=== PATIENT | female | born 1975 | race Caucasian/White ===

== ENCOUNTER → 2018-01-21 | Outpatient (CLI) | payer BC ==
--- NOTE | 2018-01-21 11:23 | MM ---
Reason for exam: screening (asymptomatic). Baseline mammogram. History: Took hormonal contraceptives for 8 months beginning at age 26. Physical Findings: Nurse did not find any significant physical abnormalities on exam. MG 3D Screening Mammo W/Cad Bilateral CC and MLO view(s) were taken. Finding: There is equal architectural distortion in the 12 o'clock upper quadrant. These results were verbally communicated with the patient and result sheet given to the patient on 01/21/18. ASSESSMENT: Probably benign, BI-RAD 3 RECOMMENDATION: Follow-up diagnostic mammogram of the left breast in 6 months.
== END | disposition home or self-care (01) ==
LOC: RADMAMWWP 10:12
PROVIDERS: ATTEND Obstetrics & Gynecology
DX: Z12.31 Encounter for screening mammogram for malignant neoplasm of breast (principal)
CPT/HCPCS: 77063; 77067

== ENCOUNTER → 2018-08-20 | Outpatient (CLI) | payer BC ==
--- NOTE | 2018-08-24 18:50 | MM ---
Reason for exam: follow-up at short interval from prior study. Last mammogram was performed 7 months ago. History: Took hormonal contraceptives for 8 months beginning at age 26. Physical Findings: Nurse did not find any significant physical abnormalities on exam. MG 3D Diag Mammo W/Cad LT CC and MLO view(s) were taken of the left breast. Prior study comparison: January 21, 2018, bilateral MG 3d screening mammo w/cad. The breast tissue is heterogeneously dense. This may lower the sensitivity of mammography. Focal asymmetries of the upper outer quadrant and upper inner quadrant on the left breast appear similar to 01/21/18 and the left upper outer quadrant focal asymmetry improves on spot compression view and appears as overlap but precautionary 6 month follow up is recommended. The right breast will be due at this time also. These results were verbally communicated with the patient and result sheet given to the patient on 08/20/18. ASSESSMENT: Probably benign, BI-RAD 3 RECOMMENDATION: Follow-up diagnostic mammogram of both breasts in 6 months.
== END | disposition home or self-care (01) ==
LOC: RADMAMWWP 15:20
PROVIDERS: ATTEND Obstetrics & Gynecology
DX: R92.8 Other abnormal and inconclusive findings on diagnostic imaging of breast (principal)
CPT/HCPCS: 77061; 77065

== ENCOUNTER 2018-10-02 19:56 | Observation (INO) | payer BC ==
[2018-10-02] MEDS ORDERED: AMPICILLIN-SULBACTAM 3 GM in SODIUM CHLORIDE 0.9% 100 ML IVPB STA (20:23)
[2018-10-02] MEDS ORDERED: SODIUM CHLORIDE 0.9% 1,000 ML IV STA (20:25)
--- NOTE | 2018-10-02 20:28 | ED ---
General Adult HPI <Rohit Cantu - Last Filed: 10/02/18 20:36> - General Source: patient, RN notes reviewed Mode of arrival: ambulatory Limitations: no limitations <Breezy Ashley - Last Filed: 10/03/18 03:15> - General Chief complaint: Abdominal Pain Stated complaint: Transfer From [facility] Time Seen by Provider: 10/02/18 20:07 - History of Present Illness Initial comments: 43-year-old female presents to the emergency department for acute appendicitis. Patient was seen at [facility] outpatient and had an outpatient CT done. This did show an acute appendicitis without abscess or perforation. She arrived by private vehicle. She states she had epigastric pain 2 weeks ago lasting for about 2 days. She takes she vomited twice with that. She states that this resolved. However yesterday the upper epigastric pain reoccurred and throughout the evening migrated into her lower abdomen. Patient states the lower abdominal pain started last night. Patient denies fevers or chills. Patient denies any nausea at this time.Patient has no other complaints at this time including shortness of breath, chest pain, nausea or vomiting, headache, or visual changes. (Breezy Ashley) - Related Data Allergies Allergy/AdvReac Type Severity Reaction Status Date / Time No Known Allergies Allergy Verified 10/02/18 20:02 Review of Systems ROS Other: All systems not noted in ROS Statement are negative. <Rohit Cantu - Last Filed: 10/02/18 20:36> ROS Other: All systems not noted in ROS Statement are negative. <Breezy Ashley - Last Filed: 10/03/18 03:15> ROS Statement: Those systems with pertinent positive or pertinent negative responses have been documented in the HPI. Past Medical History Additional Past Medical History / Comment(s): hypothyroidism History of Any Multi-Drug Resistant Organisms: None Reported Past Surgical History: Tubal Ligation Past Psychological History: No Psychological Hx Reported Smoking Status: Never smoker Past Alcohol Use History: None Reported Past Drug Use History: None Reported <Breezy Ashley - Last Filed: 10/03/18 03:15> General Exam Limitations: no limitations General appearance: alert, in no apparent distress Head exam: Present: atraumatic, normocephalic, normal inspection Eye exam: Present: normal appearance, PERRL, EOMI. Absent: scleral icterus, conjunctival injection, periorbital swelling ENT exam: Present: normal exam, mucous membranes moist Neck exam: Present: normal inspection, full ROM. Absent: tenderness, meningismus, lymphadenopathy Respiratory exam: Present: normal lung sounds bilaterally. Absent: respiratory distress, wheezes, rales, rhonchi, stridor Cardiovascular Exam: Present: regular rate, normal rhythm, normal heart sounds. Absent: systolic murmur, diastolic murmur, rubs, gallop, clicks GI/Abdominal exam: Present: soft, tenderness (Tenderness noted in the right lower quadrant with mild guarding, no rebound), guarding (Minimal on the right lower quadrant), normal bowel sounds. Absent: distended, rebound, rigid Neurological exam: Present: alert, oriented X3, CN II-XII intact Psychiatric exam: Present: normal affect, normal mood <Breezy Ashley P - Last Filed: 10/03/18 03:15> Course <Rohit Cantu - Last Filed: 10/02/18 20:36> <Breezy Ashley P - Last Filed: 10/03/18 03:15> Vital Signs 10/02/18 10/02/18 10/02/18 19:59 22:32 22:45 Temperature 98.7 F 96.8 F L Pulse Rate 105 H Pulse Rate [ 96 82 Relationship Counselor ] Pulse Rate [ Pulse Oximetery ] Respiratory 16 95 H 16 Rate Blood Pressure 150/83 Blood Pressure 131/72 126/77 [Right Arm] O2 Sat by Pulse 100 99 99 Oximetry 10/02/18 10/02/18 10/02/18 23:01 23:15 23:30 Temperature Pulse Rate Pulse Rate [ 82 84 92 Relationship Counselor ] Pulse Rate [ Pulse Oximetery ] Respiratory 16 18 18 Rate Blood Pressure Blood Pressure 124/69 126/67 120/62 [Right Arm] O2 Sat by Pulse 100 98 96 Oximetry 10/02/18 10/02/18 10/02/18 23:35 23:40 23:50 Temperature 98.4 F 98.4 F Pulse Rate Pulse Rate [ Relationship Counselor ] Pulse Rate [ 91 91 87 Pulse Oximetery ] Respiratory 18 16 Rate Blood Pressure Blood Pressure 119/70 119/79 120/79 [Right Arm] O2 Sat by Pulse 95 96 96 Oximetry 10/03/18 10/03/1819 00:05 00:20 00:35 Temperature Pulse Rate Pulse Rate [ Relationship Counselor ] Pulse Rate [ 83 84 82 Pulse Oximetery ] Respiratory Rate Blood Pressure Blood Pressure 119/78 118/74 116/75 [Right Arm] O2 Sat by Pulse 95 95 93 L Oximetry 10/03/18 10/03/18 10/03/18 00:50 01:05 01:20 Temperature Pulse Rate Pulse Rate [ Relationship Counselor ] Pulse Rate [ 80 77 77 Pulse Oximetery ] Respiratory Rate Blood Pressure Blood Pressure 111/74 113/73 112/72 [Right Arm] O2 Sat by Pulse 94 L 93 L 93 L Oximetry 10/03/18 10/03/18 10/03/18 01:35 01:50 02:05 Temperature Pulse Rate Pulse Rate [ Relationship Counselor ] Pulse Rate [ 79 74 72 Pulse Oximetery ] Respiratory Rate Blood Pressure Blood Pressure 108/70 111/70 107/69 [Right Arm] O2 Sat by Pulse 93 L 94 L 94 L Oximetry - Reevaluation(s) Reevaluation #1: 10/02/18 20:36 PA supervision: I proceeded [id number] evaluation the patient did discuss the findings with her and her . Patient did have the onset of abdominal pain yesterday which so than the lower quadrants. She did have an outpatient CAT scan and lab work done which is consistent with acute appendicitis. I did discuss the case with initially the ER doctor at [facility] also with Dr. Quiroz who will be seeing the patient and admit for appendectomy. (Rohit Cantu ) Medical Decision Making <Rohit Cantu - Last Filed: 10/02/18 20:36> <Breezy Ashley - Last Filed: 10/03/18 03:15> - Medical Decision Making 43-year-old female presents with acute appendicitis from [facility]. Patient was Ct scanned on outpatient. he does have a white count of 14 according to lab work done at [facility]. Symptoms of lower abdominal pain have been ongoing since last night. Patient offered pain medication, does not anything for pain or nausea at this time. On exam patient does have right lower quadrant tenderness. CT does show an acute appendicitis as well as an esophagitis. Patient given Unasyn, cultures drawn. Dr Cantu spoke with Dr. Louis who would like to perform appendectomy tonight. Patient admitted (Breezy Ashley) Disposition <Rohit Cantu - Last Filed: 10/02/18 20:36> Is patient prescribed a controlled substance at d/c from ED?: No Time of Disposition: 20:28 <Breezy Ashley - Last Filed: 10/03/18 03:15> Clinical Impression: Acute appendicitis, Leukocytosis Disposition: ADMITTED IP TO THIS HOSP Condition: Fair
[2018-10-02] MEDS ORDERED: ONDANSETRON 4 MG/2 ML VIAL IVP PRN (20:41)
[2018-10-02] MEDS ORDERED: NALOXONE 0.4 MG/ML 1 ML VIAL IV PRN (20:41)
[2018-10-02] MEDS ORDERED: MORPHINE SULFATE 4 MG/ML SYRINGE IV PRN (20:41)
[2018-10-02] MEDS: SODIUM CHLORIDE 0.9% 1,000 ML IV SCH (21:05)
[2018-10-02] MEDS ORDERED: HEPARIN SODIUM,PORCINE 5,000 UNIT/ML 1 ML VIAL SQ STA (21:25)
--- NOTE | 2018-10-02 21:31 | P.GSHP ---
History of Present Illness H&P Date: 10/02/18 43-year-old female presents from [place] with complaints of abdominal pain. She states that the pain started yesterday around 4 PM and began in her epigastrium. She states that she has had symptoms from gallstones previously and she thought she was having a gallbladder attack. She states that the pain then began to move and began to be located in her periumbilical area along with her right lower quadrant. She also complained of nausea and multiple episodes of emesis. She did not present to the emergency department initially and did present to her primary care physician. Outpatient workup was completed with CT of the abdomen and pelvis along with laboratory values. The patient was found to have a leukocytosis and the CT of the abdomen and pelvis did reveal dilation and inflammation of the appendix and acute appendicitis. The patient was then recommended to present to the emergency department. Currently, she states that her pain is in the right lower quadrant but she is having some pain in the left lower quadrant. She currently has some nausea but is not vomiting. She denies any febrile episodes. CT did not reveal any perforation according to the radiologist read. She states that her only previous abdominal surgery is a tubal ligation that was done laparoscopically. She denies being on any anticoagulation medicine. - Review of Systems All systems: negative Past Medical History Additional Past Medical History / Comment(s): hypothyroidism History of Any Multi-Drug Resistant Organisms: None Reported Past Surgical History: Tubal Ligation Past Psychological History: No Psychological Hx Reported Smoking Status: Never smoker Past Alcohol Use History: None Reported Past Drug Use History: None Reported Medications and Allergies Allergies Allergy/AdvReac Type Severity Reaction Status Date / Time No Known Allergies Allergy Verified 10/02/18 20:02 Surgical - Exam Osteopathic Statement: *. No significant issues noted on an osteopathic structural exam other than those noted in the History and Physical/Consult. Vital Signs Temp Pulse Resp BP Pulse Ox 98.7 F 105 H 16 150/83 100 10/02/18 19:59 10/02/18 19:59 10/02/18 19:59 10/02/18 19:59 10/02/18 19:59 - General well nourished, no distress - Eyes PERRL, normal ocular movement - ENT normal mucosa, no hearing loss - Neck trachea midline - Respiratory normal respiratory effort - Abdomen Soft, tender to palpation in the right lower quadrant, nondistended, no rebound , no guarding - Neurologic normal coordination - Musculoskeletal normal gait - Psychiatric oriented to time, oriented to person, oriented to place Results - Imaging CT scan - abdomen: report reviewed CT scan - pelvis: report reviewed (Report of the CT was reviewed and finding of acute appendicitis is noted) Assessment and Plan (1) Acute appendicitis Narrative/Plan: 43-year-old female with acute appendicitis - Keep the patient nothing by mouth - Begin IV antibiotics - Plan for laparoscopic appendectomy - Further recommendations after surgery Current Visit: Yes Status: Acute Code(s): K35.80 - UNSPECIFIED ACUTE APPENDICITIS SNOMED Code(s): 60749371
[2018-10-02] MEDS ORDERED: PROPOFOL 10 MG/ML 20 ML VIAL IV ONE (21:35)
[2018-10-02] MEDS ORDERED: HEPARIN SODIUM,PORCINE 5,000 UNIT/ML 1 ML VIAL ONE (21:35)
[2018-10-02] MEDS ORDERED: ONDANSETRON 4 MG/2 ML VIAL ONE (21:35)
[2018-10-02] MEDS ORDERED: SUCCINYLCHOLINE CHLORIDE 100 MG/5 ML SYR IV ONE (21:35)
[2018-10-02] MEDS ORDERED: MIDAZOLAM 2 MG/2 ML VIAL ONE (21:35)
[2018-10-02] MEDS ORDERED: NEOSTIGMINE 1 MG/ML 10 ML VIAL ONE (21:35)
[2018-10-02] MEDS ORDERED: LIDOCAINE 1% INJ 10MG/ML (20 ML MDV) ONE (21:35)
[2018-10-02] MEDS ORDERED: ROCURONIUM BROMIDE 10 MG/ML 10 ML VIAL IV ONE (21:35)
[2018-10-02] MEDS ORDERED: fentaNYL (PF) 50 MCG/ML 2 ML AMP ONE (21:35)
[2018-10-02] MEDS ORDERED: GLYCOPYRROLATE 0.2 MG/ML 2 ML VIAL ONE (21:35)
[2018-10-02] MEDS ORDERED: DEXAMETHASONE SOD PHOS (MDV) 100 MG/10 ML VIAL ONE (21:35)
[2018-10-02] MEDS ORDERED: IV FLUID CONTINUATION 1,000 ML IV ONE (21:40)
[2018-10-02] MEDS ORDERED: BUPIVACAINE (PF) 0.25% 30 ML VIAL SQ ONE ×2 (21:55)
[2018-10-02] MEDS ORDERED: LACTATED RINGERS 1,000 ML IV ONE (22:20)
--- NOTE | 2018-10-02 22:35 | P.OP ---
Date of Procedure: 10/02/18 Preoperative Diagnosis: Acute appendicitis Postoperative Diagnosis: Acute appendicitis Procedure(s) Performed: Laparoscopic appendectomy Anesthesia: ISSAC Surgeon: Carolyn Louis Pathology: other (Appendix) Condition: stable Disposition: floor Indications for Procedure: 43-year-old female with right lower quadrant abdominal pain that presented to her primary care physician's office. As an outpatient, she was worked up with CBC along with CT of the abdomen and pelvis. She was found to have leukocytosis along with acute appendicitis. Secondary to this, she presented to the emergency department and plan is for a laparoscopic appendectomy. The patient was explained the risks, benefits and alternatives to the procedure and did provide consent prior to attending the operating suite. Operative Findings: Inflamed appendix with some surrounding exudative changes Turbid fluid in pelvis Description of Procedure: The patient was brought into the operating suite and placed in supine position on the operating table. Sedation was provided by anesthesia and the patient underwent endotracheal intubation. The patient was then prepped and draped in regular sterile fashion. A super umbilical incision was made and dissection was carried to the fascia. The fascia was incised and a 12 mm trocar was placed. Pneumoperitoneum was then achieved. The patient was then placed in appropriate position. 2 additional 5 mm ports were placed. One was placed in the suprapubic region and the second was placed in the left lower quadrant. The appendix was then clearly visualized and grasped. It was noted to be adhered to surrounding tissue and was peeled away with blunt dissection. The base of the appendix was then clearly visualized. A window was created between the appendix and the mesoappendix just at the base of the appendix using a [place] dissector. A 60 mm stapler device was then fired across the base of the appendix. A LigaSure device was used to then dissect the appendix from the mesial appendix. Hemostasis was noted to be maintained. The staple line was then inspected and was noted to be hemostatic. A small amount of irrigation was then placed in the right lower quadrant and suctioned. The turbid fluid that was noted in the pelvis was suctioned. The 12 mm trocar site was then removed and the fascial defect was closed with interrupted 0 Vicryl suture using a Jalil-Osito device under direct visualization. Additional ports were removed from the abdomen and pneumoperitoneum was released. All skin incision sites were then closed with 4-0 Vicryl subcuticular suture. The patient was awakened in the operating suite and taken to postanesthesia care unit in stable condition.
[2018-10-02] MEDS ORDERED: HYDROcodone/APAP 5-325MG 1 EACH TAB PO PRN (22:36)
[2018-10-02] MEDS: MEPERIDINE 50 MG/ML SYRINGE IVP ONE ×2 (22:50→23:00)
[2018-10-02] MEDS ORDERED: KETOROLAC 30 MG/ML 1 ML VIAL IVP ONE (23:00)
[2018-10-02] MEDS ORDERED: SODIUM CHLORIDE 0.9% 100 ML IV ONE (23:29)
[2018-10-03 01:12] VITALS: RESP 16
[2018-10-03] MEDS ORDERED: AMPICILLIN-SULBACTAM 3 GM in SODIUM CHLORIDE 0.9% 100 ML IVPB SCH (05:00)
[2018-10-03] MEDS: HEPARIN SODIUM,PORCINE 5,000 UNIT/ML 1 ML VIAL SQ SCH ×2 (05:27→08:37)
[2018-10-03 07:05] VITALS: BP 111/64; PULSE 67; TEMP 99
[2018-10-03 07:09] LABS: Basophils % (A) 0 %; Eosinophils % (A) 1 %; HCT 34.9 % (34.0-46.0); HGB 12.3 gm/dL (11.4-16.0); Lymphocytes % (A) 12 %; MCH 31.2 pg (25.0-35.0); MCHC 35.3 g/dL (31.0-37.0); MCV 88.3 fL (80.0-100.0); Mean Platelet Volume 6.4; Monocytes # (A) 0.2 k/uL (0-1.0); Monocytes % (A) 3 %; Neutrophils % (A) 85 %; Platelet Count 190 k/uL (150-450); RBC 3.96 m/uL (3.80-5.40); RDW 13.5 % (11.5-15.5); WBC 8.3 k/uL (3.8-10.6)
[2018-10-03 07:32] LABS: Anion Gap 6 mmol/L; Blood Urea Nitrogen 13 mg/dL (7-17); Calcium 8.4 mg/dL (8.4-10.2); Carbon Dioxide 23 mmol/L (22-30); Chloride 109 mmol/L (98-107); Glucose 145 mg/dL (74-99); Potassium 4.2 mmol/L (3.5-5.1); Sodium 138 mmol/L (137-145)
[2018-10-03] MEDS: SODIUM CHLORIDE 0.9% 1,000 ML IV SCH (08:30)
[2018-10-03] MEDS ORDERED: KETOROLAC 30 MG/ML 1 ML VIAL IVP STA (09:04)
--- NOTE | 2018-10-03 10:42 | P.DS ---
Providers Date of admission: 10/02/18 22:16 Attending physician: Carolyn Louis DO Primary care physician: Marko Watters MD - Discharge Diagnosis(es) (1) Acute appendicitis Current Visit: Yes Status: Acute Hospital Course: 43-year-old female presented to the emergency department after an outpatient workup revealed acute appendicitis. On arrival, plan was for laparoscopic appendectomy due to these findings. Postoperatively, the patient was sent to the medical surgical floor. She began tolerating a diet and pain was well- controlled. The patient was refusing any opiate pain medications due to concern of constipation. Pain was controlled with NSAID use. She has been urinating and denies any nausea and vomiting. At this time, she is surgically stable for discharge. She is to follow-up in one week. Procedures: Laparoscopic appendectomy Patient Condition at Discharge: Fair Plan - Discharge Summary New Discharge Prescriptions: New HYDROcodone/APAP 5-325MG [[place] 5-325] 1 tab PO Q6HR PRN 3 Days #12 tab PRN Reason: Pain Discharge Medication List HYDROcodone/APAP 5-325MG [[place] 5-325] 1 tab PO Q6HR PRN 3 Days #12 tab [Rx] Follow up Appointment(s)/Referral(s): Marko Watters MD [Primary Care Provider] - 1-2 days Carolyn Louis DO [Doctor of Osteopathic Medicine] - 1 Week Patient Instructions/Handouts: Laparoscopic Appendectomy (DC) Activity/Diet/Wound Care/Special Instructions: Continue to increase activity daily Recommend off of work for 7 days No lifting greater than 10 pounds for 2 weeks Okay to shower, do not scrub on incision sites, pat dry Take pain meds as necessary, do not drive while taking opiate pain medication Discharge Disposition: HOME SELF-CARE
== END 2018-10-03 15:18 | disposition home or self-care (01) ==
LOC: EC 19:56 → 4SSUR 22:16
PROVIDERS: ADMIT Surgery; ATTEND Surgery
DX: K35.80 Unspecified acute appendicitis (principal); E03.9 Hypothyroidism, unspecified; K21.9 Gastro-esophageal reflux disease without esophagitis; Z98.51 Tubal ligation status
CPT/HCPCS: 44970; 99285; 36415; 80048; 85025; 87040; G0378 ×2; J2250; J1644 ×2; J2710; J2175; J2405; J2001; J3010; J1885 ×2; J0295 ×2; J1100; J0330; J2704; 88304; 88341; 88342

== ENCOUNTER → 2019-02-24 | Outpatient (CLI) | payer BC ==
--- NOTE | 2019-02-24 08:39 | MM ---
Reason for exam: additional evaluation requested from prior study. Last mammogram was performed 6 months ago. History: Patient history of other cancer. Took hormonal contraceptives for 8 months beginning at age 26. Physical Findings: Nurse did not find any significant physical abnormalities on exam. MG 3D Diag Mammo W/Cad KOFI Bilateral CC and MLO view(s) were taken. Prior study comparison: August 20, 2018, left breast MG 3d diag mammo w/cad LT. January 21, 2018, bilateral MG 3d screening mammo w/cad. The breast tissue is heterogeneously dense. This may lower the sensitivity of mammography. There is chronic nodularity in the right breast. Asymmetric breast tissue in the left breast is stable. There is no discrete abnormality. These results were verbally communicated with the patient and result sheet given to the patient on 02/24/19. ASSESSMENT: Benign, BI-RAD 2 RECOMMENDATION: Routine screening mammogram of both breasts in 1 year.
== END | disposition home or self-care (01) ==
LOC: RADMAMWWP 06:56
PROVIDERS: ATTEND Obstetrics & Gynecology
DX: R92.8 Other abnormal and inconclusive findings on diagnostic imaging of breast (principal)
CPT/HCPCS: 77062; 77066

== ENCOUNTER → 2020-03-20 | Outpatient (CLI) | payer BC ==
--- NOTE | 2020-03-22 08:43 | MM ---
Reason for exam: screening (asymptomatic). Last mammogram was performed 1 year and 1 month ago. History: Patient has history of other cancer at age 44. Took hormonal contraceptives for 8 months beginning at age 26. Physical Findings: A clinical breast exam by your physician is recommended on an annual basis and results should be correlated with mammographic findings. MG 3D Screening Mammo W/Cad Bilateral CC and MLO view(s) were taken. Prior study comparison: February 24, 2019, bilateral MG 3d diag mammo w/cad KOFI. August 20, 2018, left breast MG 3d diag mammo w/cad LT. The breast tissue is heterogeneously dense. This may lower the sensitivity of mammography. Finding: There is a typically benign oval mass in the right breast. No significant changes in finding since February 24, 2019 and August 20, 2018. ASSESSMENT: Benign, BI-RAD 2 RECOMMENDATION: Routine screening mammogram of both breasts in 1 year.
== END | disposition home or self-care (01) ==
LOC: RADMAMWWP 16:20
PROVIDERS: ATTEND Obstetrics & Gynecology
DX: Z12.31 Encounter for screening mammogram for malignant neoplasm of breast (principal)
CPT/HCPCS: 77063; 77067

== ENCOUNTER → 2022-04-10 | Outpatient (CLI) | payer BC ==
--- NOTE | 2022-04-12 07:21 | US ---
EXAMINATION TYPE: US pelvis complete transvag DATE OF EXAM: 04/10/2022 COMPARISON: NONE CLINICAL HISTORY: N93.9 MENORRHAGIA, N92.6 IRREGULAR MENSES Heavy cycles 2 weeks apart x 1 year. TECHNIQUE: Transvaginal (TV) and Transabdominal (TA) . Transabdominal sonographic images of the pel vis were acquired. Transvaginal sonographic images were medically necessary to better assess the fol lowing anatomy: Endometrium Date of LMP: Unknown, EXAM MEASUREMENTS: Uterus: 6.5 x 5.4 x 4.7 cm Endometrial Stripe: 0.4 cm Right Ovary: 2.9 x 2.6 x 2.0 cm Left Ovary: 1.6 x 1.7 x 1.0 cm 1. Uterus: Retroverted Heterogenous 2. Endometrium: wnl 3. Right Ovary: wnl 4. Left Ovary: wnl 5. Bilateral Adnexa: wnl 6. Posterior cul-de-sac: no free fluid IMPRESSION: No significant abnormality appreciated.
== END | disposition home or self-care (01) ==
LOC: RADUSWWP 14:48
PROVIDERS: ATTEND Obstetrics & Gynecology
DX: Z12.31 Encounter for screening mammogram for malignant neoplasm of breast (principal); N93.9 Abnormal uterine and vaginal bleeding, unspecified; N92.6 Irregular menstruation, unspecified
CPT/HCPCS: 76830; 76856; 77063; 77067